=== PATIENT | female | born 1985 | race Caucasian/White ===

== ENCOUNTER 2020-06-09 06:30 | Day surgery (SDC) | payer OTHER | END 2020-06-09 13:25 | disposition home or self-care (01) | LOC: AMB-ENDOS 06:30 | PROVIDERS: ATTEND Colon & Rectal Surgery | DX: K62.89 Other specified diseases of anus and rectum (principal); K64.0 First degree hemorrhoids; Z20.822 Contact with and (suspected) exposure to COVID-19 ==

== ENCOUNTER 2020-10-06 07:11 | Outpatient (CLI) | payer OTHER | END 2020-10-06 07:16 | disposition home or self-care (01) | LOC: SONOGRAMA 07:11 → MAMO-SONO 07:15 → SONOGRAMA 07:16 | PROVIDERS: ATTEND Colon & Rectal Surgery | DX: N82.3 Fistula of vagina to large intestine (principal) ==